=== PATIENT | female | born 1985 | race African-American/Black ===

== ENCOUNTER 2017-01-27 04:50 | Emergency (ER) | payer MEDICAID ==
--- NOTE | 2017-02-01 07:42 | ER ---
ADMIT: 01/27/2017 RM/LOC: ER [facility] MR#: [id number] [facility] [address] [place], [place] [id number] NATHAN AMMONSELENE FERRERGI [address] [place] [address] Emergency Room Report SEX: F AGE: 31 : 1985 DATE: 01/27/2017 TIME: 0450 hours. Please refer to my T-sheet for complete H and P. HISTORY OF PRESENT ILLNESS: Briefly, the patient is a 31-year-old, who actually is driving from [place] to [place]. She has been out in [place] where she had some altitude sickness. She has been seen a couple times in ERs for just not feeling well, she was given fluid on one of them. She has a known history of high blood pressure, which she has not been taking her medication for. She came in because she noticed her heart was beating funny. She actually went and laid down in the motel room and still could not stop the feeling, so she came for evaluation. She has a known history of anxiety, has not been taking her Ativan because she does not like the way it makes her feel and is here for evaluation. PHYSICAL EXAMINATION: VITAL SIGNS: Her blood pressure 153/103, pulse 87, respirations 18, temp 97.9, saturating 98%. GENERAL: She is in no acute distress. Slightly anxious. HEENT: Grossly normal. LUNGS: Clear. HEART: Regular. No murmur. ABDOMEN: Soft. SKIN: No rash. EMERGENCY DEPARTMENT COURSE: EKG was obtained, showed sinus rhythm, rate 89, no acute changes. CBC is normal except white count 11; hemoglobin 10.8, she has been told she is slightly anemic in the past. Chemistries normal except potassium 3.4, glucose 146. I gave her lisinopril 10 mg p.o. after discussion with her. We are going to start her on the lisinopril. I recommend she ADMIT: 01/27/2017 RM/LOC: ER [facility] MR#: [id number] [facility] [address] [place] [id number] AMMON EVANS [address] [place] [address] Emergency Room Report SEX: F AGE: 31 : 1985 follow up with her primary when she gets back to [place]. ASSESSMENT: 1. Palpitations. 2. Anxiety. 3. Hypertension with med noncompliance. PLAN: Lisinopril 10 mg a day, I gave her script for #30. Return if worse, decrease stress, exercise, follow up with her primary doctor when she gets back to [place]. Noel Woodard MD/ mare JOB #: [id number] CC: Noel Woodard MD, Attending Physician Vandana Xiao MD, Family Physician Matt Lyman MD
== END 2017-01-27 06:48 | disposition home or self-care (01) ==
LOC: ER 04:50
DX: R00.2 Palpitations (principal); F41.9 Anxiety disorder, unspecified; I10 Essential (primary) hypertension; Z88.1 Allergy status to other antibiotic agents; Z91.040 Latex allergy status